=== PATIENT | male | born 1970 | race Two or more races ===

== ENCOUNTER 2019-06-14 14:01 | Emergency (ER) | payer MEDICAID ==
[~2019-06-14] VITALS: Ht 165.1 cm; Wt 77.1 kg
[2019-06-14] MEDS ORDERED: TDAP DIPH,PERTUSS,TET VAC/PF 0.5 ML DISP.SYRIN IM ONE ×2 (14:30→14:41)
[2019-06-14] MEDS ORDERED: IV NORMAL SALINE 1000 ML BAG IV ONE (14:30)
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
--- NOTE | 2019-06-14 14:50 | NUR ---
Dr Rankin spoke to ER MD at [facility](Dr Singh). Pt was accepted to be transfered to ER for higher level of care.
[2019-06-14] MEDS ORDERED: HYDROMORPHONE 1 MG/1 ML DISP.SYRIN ONE ×2 (15:10→16:45)
[2019-06-14] MEDS ORDERED: ONDANSETRON 4 MG/2 ML VIAL ONE (15:10)
[2019-06-14] MEDS ORDERED: ONDANSETRON 4 MG/2 ML VIAL IV ONE (15:15)
[2019-06-14] MEDS ORDERED: HYDROMORPHONE 1 MG/1 ML DISP.SYRIN IV ONE ×2 (15:15→16:45)
--- NOTE | 2019-06-14 16:10 | NUR ---
Place a call to [facility] ER to provide nurse to nurse report. Place on the hold for 35 mins and noone answered. copy the chart as well as EKG.
--- NOTE | 2019-06-14 16:45 | NUR ---
Wet to dry dressing applied to Lt hand/wrist and forearm.
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
== END 2019-06-14 17:10 | disposition short-term general hospital (02) ==
LOC: ER 14:01
DX: T20.30XA Burn of third degree of head, face, and neck, unspecified site, initial encounter (principal); T23.302A Burn of third degree of left hand, unspecified site, initial encounter; T22.312A Burn of third degree of left forearm, initial encounter; T31.10 Burns involving 10-19% of body surface with 0% to 9% third degree burns; W86.8XXA Exposure to other electric current, initial encounter; Y93.89 Activity, other specified; Y92.89 Other specified places as the place of occurrence of the external cause; Y99.8 Other external cause status
CPT/HCPCS: 90471; 90715; 93005; 96374; 96375; 96376; 99285; J1170 ×2; J2405; A4217; A4663; J7030